=== PATIENT | female | born 1935 | race Caucasian/White ===

== ENCOUNTER 2017-03-30 09:32 | Emergency (ER) | payer MEDICARE, OTHER ==
[~2017-03-30 09:32] MED LIST: AMLODIPINE-BENA1 CA3 PO; ATORVASTATIN CA10 MG PO; AZOR 10/20 MG T1 TAB PO; BACLOFEN10 MG PO; EVISTA60 MG PO; LIPITOR PO; LOTREL 10/20 CA1 CAP PO; LOTREL 5/20 MG1 CAP PO; VITAMIN D400 UNI1 PO
[2017-04-28] MEDS ORDERED: B-121000 MC1 PO (07:28)
[2017-04-28] MEDS ORDERED: IRON256 MG PO (07:28)
[2017-04-28] MEDS ORDERED: FOLIC ACID1 MG PO (07:29)
[2017-04-28] MEDS ORDERED: PROTONIX PO (07:29)
[2017-04-28] MEDS ORDERED: AMLODIPINE-OLM1 EAC1 PO (07:29)
[2017-04-28] MEDS ORDERED: ATORVASTATIN CA10 MG PO (07:29)
== END 2017-03-30 11:44 | disposition home or self-care (01) ==
LOC: CED 09:32
DX: R13.10 Dysphagia, unspecified (principal); I10 Essential (primary) hypertension; Z88.0 Allergy status to penicillin; Z88.2 Allergy status to sulfonamides
CPT/HCPCS: 36415; 96374; 99283; J1610

== ENCOUNTER 2017-04-01 12:14 | Emergency (ER) | payer MEDICARE, OTHER ==
[~2017-04-01] VITALS: Ht 157.5 cm; Wt 47.6 kg
--- NOTE | ~2017-04-01 | CT114 ---
[facility] A Service of [facility] & [facility] RADIOLOGY TEXT RESULTS PATIENT: NETO CALVIN LOCATION: [facility] : 37 UNIT #: [id number] AGE: [address]: Morena Gentile MD SEX: F ORDER DR: [id number] [facility] [address] [place], [place] [address] [id number] E MR#: [id number] Acc #: [id number] NAME: NETO CALVIN : 1935 SEX: F STUDY DATE/TIME: 04/01/2017 19:07 UNIT: [facility] ROOM: STUDY DESCRIPTION: CT Soft Tissue Neck W Cont Attending Physician: Morena Gentile M.D. Ordering Physician: Deion Mendoza M.D. Primary Care Physician: Antonio Real M.D. MEDICAL IMAGING REPORT This report is preliminary unless electronic signature is present EXAM CT neck soft tissue with contrast HISTORY Throat pain, feels like something is stuck in her throat, onset of symptoms 03/29/2017. COMMENT CT of the neck soft tissue performed during the intravenous administration of 75 mL of Isovue-370. Imaging acquired in the axial plane followed by sagittal and coronal reconstructed images. This CT exam was performed with one or more of the following radiation dose reduction techniques: Automatic exposure control, adjustment of mA and/or kV according to patient size, and iterative reconstruction. There is a mass lesion centered in the right apex with ill-defined margins and approximate measurements of 7.6 cm SI dimension, 6.6 cm AP dimension, and 6.8 cm ML dimension. It is highly concerning for primary lung cancer. It is resulting in mass effect upon the trachea such that it is partially effaced and deviated towards the left and it impinges upon the esophagus with at least effacement of this structure and I cannot exclude some component of direct invasion. It is abutting the upper thoracic spine and there might be some extension into right side foramen at T1-2. No clear extension into the canal itself. There is some adjacent parenchymal consolidation and there is underlying emphysematous disease. The parotid glands are unremarkable. The right submandibular gland appears to be very atrophic. The left is unremarkable. Venous collaterals in the right neck are prominently filling and this is probably due to mass effect upon the right subclavian to brachiocephalic vein by the right upper lobe mass lesion. Thyroid gland is unremarkable, allowing for the large venous collaterals which partly obscure it. 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 [facility] A Service of [facility] RADIOLOGY TEXT RESULTS PATIENT: NETO CALVIN [facility] [id number] : 37 UNIT #: [id number] AGE: [address]: Morena Gentile MD SEX: F ORDER DR: involvement. Please correlate further with physical findings. Discreet lymphadenopathy is not appreciated. No definite bone destruction. IMPRESSION 1. There is a large mass lesion centered in the right upper lobe highly suspicious for a primary lung cancer, measuring about 7.6 x 6.6 x 6.8 cm dimension. It results in some mass effect on the trachea with deviation towards the left. It results in at least severe mass effect on the esophagus and may invade the structure. Additionally, it results in severe mass effect on the right brachiocephalic and subclavian veins such that there is a large amount of right-sided neck venous collateral filling. 2. Emphysema. 3. Further evaluation in this patient is recommended with a CT chest with contrast. I would recommend that this be obtained after the original contrast dose from today has been allowed to clear, given this patient's age group. PET CT would be helpful for more complete staging the patient. Given the possible extension of the mass into the right side T1-2 foramen, if the patient is a candidate MRI of the cervicothoracic spine region would also be helpful with and without contrast to assess tumor extent. STAT * RESULT Dictated by... Monet Morataya M.D. THIS IS AN ELECTRONICALLY VERIFIED REPORT Monet Morataya M.D. at 04/01/2017 10:52 PM HOLDEN/carolyn TD: 04/01/2017 20:30 JOB #: [id number] MEDICAL IMAGING REPORT Page 1 of 1 COPY
--- NOTE | ~2017-04-01 | CR72 ---
[facility] A Service of [facility] RADIOLOGY TEXT RESULTS PATIENT: NETO CALVIN LOCATION: [facility] : 37 UNIT #: [id number] AGE: [address]: Morena Gentile MD SEX: F ORDER DR: [id number] [facility] [address] [place], [place] [address] [id number] E MR#: [id number] Acc #: [id number] NAME: NETO CALVIN : 1935 SEX: F STUDY DATE/TIME: 04/01/2017 22:07 UNIT: [facility] ROOM: STUDY DESCRIPTION: CR Chest Single View Portable Attending Physician: Morena Gentile M.D. Ordering Physician: Morena Gentile M.D. Primary Care Physician: Antonio Real M.D. MEDICAL IMAGING REPORT This report is preliminary unless electronic signature is present EXAM Portable chest. FINDINGS Bilateral emphysema. Right apical lung mass with extension into the right upper mediastinum causing tracheal deviation to the left, corresponds to mass on CT neck earlier today, and is highly concerning for malignancy. This is new compared to prior chest x-ray 12/12/2015. Stable rounded nodule in the left midlung compared to prior studies dating back to 10/22/2009, compatible with an incidental granuloma. Scattered interstitial fibrotic scarring in both lungs. Cardiac size and pulmonary vascularity are within normal limits. IMPRESSION 1. Right apical lung mass extends into the right upper mediastinum and causes tracheal deviation to the left. This is concerning for malignancy, including locally invasive lung carcinoma, but this corresponds to the lesion noted on CT neck today. 2. Stable incidental benign nodule left midlung. 3. Bilateral emphysema. Dictated by... Saman Gonzales M.D. THIS IS AN ELECTRONICALLY VERIFIED REPORT Saman Gonzales M.D. at 04/02/2017 4:13 PM DFL/johnnie TD: 04/02/2017 08:47 JOB #: [id number] MEDICAL IMAGING REPORT [facility] A Service of [facility] RADIOLOGY TEXT RESULTS PATIENT: NETO CALVIN LOCATION: [facility] #: [id number] : 39 UNIT #: [id number] AGE: [address]: Morena Gentile MD SEX: F ORDER DR: Page 1 of 1 COPY
[2017-04-01 17:27] LABS: BASOPHIL% 0.4 % (0-2.5); EOSINOPHIL% 0.2 % (0.0-7.0); HEMATOCRIT 34.6 % (35.0-45.0); HEMOGLOBIN 11.4 gm/dL (12.0-16.0); LYMPHOCYTE# 1.2 X10e3 (1.0-3.5); LYMPHOCYTE% 9.9 % (17.0-45.0); MEAN CELL VOLUME 93.8 FL (83-96); MEAN CORPUSCULAR HEMOGLOBIN 30.8 PG (28-34); MEAN CORPUSCULAR HGB CONC 32.8 g/dL (30-36); MEAN PLATELET VOLUME 7.5 FL (6.5-11.5); MONOCYTE# 1.1 X10e3 (0-1.0); MONOCYTE% 9.2 % (3.0-12.0); NEUTROPHIL# 9.8 X10e3 (1.5-7.1); NEUTROPHIL% 80.3 % (40-75); PLATELET COUNT 248 X10e3 (140-420); RED BLOOD COUNT 3.69 X10e (3.90-5.30); RED CELL DISTRIBUTION WIDTH 14.7 % (11.0-15.5); WHITE BLOOD COUNT 12.1 X10e3 (4.0-10.5)
[2017-04-01 17:28] LABS: DIFF IND NO
[2017-04-01 17:51] LABS: BUN/CREATININE RATIO 22.72; CALCIUM SERUM 9.6 mg/dL (8.4-10.2); CREATININE SERUM 1.1 mg/dL (0.6-1.4); GLOM FILT RATE Estimated 47.7 mL/min (>60); POTASSIUM 4.3 mmol/L (3.5-5.1)
[2017-04-01] MEDS ORDERED: LOTREL 10-20 M1 EACH PO (22:00)
[2017-04-01] MEDS ORDERED: ATORVASTATIN CA10 MG PO (22:01)
[2017-04-28] MEDS ORDERED: B-121000 MC1 PO (07:28)
[2017-04-28] MEDS ORDERED: IRON256 MG PO (07:28)
[2017-04-28] MEDS ORDERED: ATORVASTATIN CA10 MG PO (07:29)
[2017-04-28] MEDS ORDERED: PROTONIX PO (07:29)
[2017-04-28] MEDS ORDERED: AMLODIPINE-OLM1 EAC1 PO (07:29)
[2017-04-28] MEDS ORDERED: FOLIC ACID1 MG PO (07:29)
== END 2017-04-02 08:29 | disposition short-term general hospital (02) ==
LOC: CED 12:14
PROVIDERS: Emergency Medicine
DX: R91.8 Other nonspecific abnormal finding of lung field (principal); I10 Essential (primary) hypertension; Z90.49 Acquired absence of other specified parts of digestive tract; Z90.710 Acquired absence of both cervix and uterus; Z88.0 Allergy status to penicillin; Z88.2 Allergy status to sulfonamides
CPT/HCPCS: 36415; 70491; 71010; 80048; 85025; 96360; 99285; Q9967

== ENCOUNTER → 2017-04-28 | Outpatient (CLI) | payer MEDICARE, OTHER ==
[~2017-04-28] VITALS: Ht 160 cm; Wt 42.8 kg
[~2017-04-28] MED LIST changes: +AMLODIPINE-OLM1 EAC1 PO; +B-121000 MC1 PO; +FOLIC ACID1 MG PO; +IRON256 MG PO; +LOTREL 10-20 M1 EACH PO; +PROTONIX PO
--- NOTE | ~2017-04-28 | XA91 ---
[facility] A Service of [facility] & [facility] RADIOLOGY TEXT RESULTS PATIENT: NETO CALVIN LOCATION: [facility] : 37 UNIT #: [id number] AGE: [address]: Ameena Tucker MD SEX: F ORDER DR: [id number] [facility] [address] [place], [place] [address] [id number] O MR#: [id number] Acc #: [id number] NAME: NETO CALVIN : 1935 SEX: F STUDY DATE/TIME: 04/28/2017 8:43 UNIT: [facility] ROOM: STUDY DESCRIPTION: XA CVC Tunneled W Port Attending Physician: Ameena Tucker M.D., Ph.D. Referring Physician: Ameena Tucker M.D., Ph.D. Ordering Physician: Ameean Tucker M.D., Ph.D. Primary Care Physician: Antonio Real M.D. MEDICAL IMAGING REPORT This report is preliminary unless electronic signature is present EXAM Port-A-Cath insertion, 04/28/2017. HISTORY IV access needed, lung cancer. PROCEDURE Informed consent was obtained from patient. Full standard sterile technique was utilized including sterile preparation, barrier draping, sterile gowns and gloves as well as caps and masks. IV conscious sedation with fentanyl and Versed was provided intravenously with hemodynamic monitoring provided by the nursing staff throughout the procedure, total sedation time 45 minutes. Real-time fluoroscopic guidance was utilized to guide catheter tip position, total fluoro time 0.2 minutes with single spot image. Real-time sterile ultrasound guidance was used to guide venous access and confirm vessel patency. The right internal jugular vein was accessed with real-time ultrasound guidance following local anesthesia through a small incision. Peel-away sheath was inserted after the tract was dilated. A pocket was created over the left upper chest wall with a combination of blunt sharp dissection following local anesthesia. Port-A-Cath hub was inserted in the pocket, the catheter tunneled to the venotomy site, measured, cut to length and inserted via the peel-away sheath. The catheter was accessed, blood return confirmed and catheter was flushed and then packed with a heparin solution. The venotomy site was closed with a single 3-0 Vicryl fascial suture and N-butyl cyanoacrylate glue and the hub/pocket site was closed with interrupted deep fascial 3-0 Vicryl suture and running subcuticular 4-0 Monocryl suture and N-butyl cyanoacrylate glue. [facility] A Service of [facility] RADIOLOGY TEXT RESULTS PATIENT: NETO CALVIN LOCATION: [facility] : 37 UNIT #: [id number] AGE: [address]: Ameena Tucker MD SEX: F ORDER DR: Overall the patient tolerated the procedure well and was discharged to home in stable condition. IMPRESSION Successful ultrasound and fluoroscopically guided placement of a left IJ Lvhaqd-D-Hskm catheter under standard sterile technique with conscious sedation as above. Dictated by... Julio Crain M.D. THIS IS AN ELECTRONICALLY VERIFIED REPORT Julio Crain M.D. at 04/29/2017 2:05 PM TEV/pc TD: 04/29/2017 07:04 JOB #: [id number] MEDICAL IMAGING REPORT Page 1 of 1 COPY
[2017-04-28 07:31] LABS: HEMATOCRIT 31.1 % (35.0-45.0); HEMOGLOBIN 10.3 gm/dL (12.0-16.0); MEAN CELL VOLUME 94.1 FL (83-96); MEAN CORPUSCULAR HEMOGLOBIN 31.1 PG (28-34); MEAN CORPUSCULAR HGB CONC 33.1 g/dL (30-36); MEAN PLATELET VOLUME 6.9 FL (6.5-11.5); RED BLOOD COUNT 3.31 X10e (3.90-5.30); RED CELL DISTRIBUTION WIDTH 15.4 % (11.0-15.5)
[2017-04-28 07:44] LABS: PARTIAL THROMBOPLASTIN TIME 23.3 SECONDS (23.5-31.3)
== END | disposition home or self-care (01) ==
LOC: CIVR 06:58
PROVIDERS: Internal Medicine Hematology & Oncology
DX: C34.11 Malignant neoplasm of upper lobe, right bronchus or lung (principal); Z45.2 Encounter for adjustment and management of vascular access device; J90 Pleural effusion, not elsewhere classified; Z88.0 Allergy status to penicillin; Z88.2 Allergy status to sulfonamides
CPT/HCPCS: 36415; 76937; 77001; 85027; 85610; 85730; 99152; 99153; C1788; J1642; J2250; J3010